=== PATIENT | female | born 1980 | race Asian ===

== ENCOUNTER → 2023-02-05 | Outpatient (CLI) | payer BC ==
--- NOTE | 2023-02-05 15:40 | MR ---
MRI brain and cervical spine. HISTORY: Numbness and tingling right arm and hand. COMPARISON: None. TECHNIQUE: Multiecho multiplanar images the brain and cervical spine were obtained without contrast. FINDINGS: MRI BRAIN: On the T1-weighted sagittal images midline structures including the cranial vertebral junction relati onships appear normal. The ventricles, basal cisterns and sulci over convexities within normal limits and there is no mass e ffect or shift of the midline structures. No abnormal signal intensity is seen throughout the brain parenchyma. Based on diffusion-weighted imaging, there is no diffusion restriction or acute ischemic event. The posterior fossa including the brainstem, fourth ventricle and cerebellar pontine angles are rosanne l. Intraorbital contents appear normal and symmetric. Visualized paranasal sinuses and mastoid air cells are well aerated. MRI cervical spine: The craniovertebral junction relationships and prevertebral soft tissues are normal. The disc spaces are well-maintained in height. There is minimal degenerative disc disease at the C5-6 level where there is a mild posterior disc bulge resulting in minimal mass effect on the ventral asp ect of thecal sac. The cervical cord is normal in size and signal intensity and there is no cervical stenosis. There is no cervical disc herniation. There is mild to moderate neural foraminal stenosis at the C5-6 level on the right and mild neural fo raminal stenosis at C5-6 on the left. IMPRESSION: 1. No significant abnormality seen within the brain. 2. Mild degenerative disc disease at C5-6 with mild to moderate right-sided neural foraminal stenosis .
== END | disposition home or self-care (01) ==
LOC: RADMRIMAIN 11:55
PROVIDERS: ATTEND Family Medicine
DX: G43.009 Migraine without aura, not intractable, without status migrainosus (principal); M99.71 Connective tissue and disc stenosis of intervertebral foramina of cervical region; M50.122 Cervical disc disorder at C5-C6 level with radiculopathy
CPT/HCPCS: 70551; 72141

== ENCOUNTER → 2023-02-25 | Outpatient (CLI) | payer BC ==
--- NOTE | 2023-02-28 13:52 | MM ---
Reason for Exam: Screening (asymptomatic). Baseline mammogram. Patient History: Menarche at age 8. First Full-Term at age 28. Late child-bearing (after 28). Last menstrual period: Risk Values: Medina 5 year model risk: 1.2%. NCI Lifetime model risk: 14.3%. Prior Study Comparison: Patient's first Mammogram. Tissue Density: The breast tissue is heterogeneously dense. This may lower the sensitivity of mammography. Findings: Analyzed By CAD. No significant mass, suspicious microcalcification, or other discrete abnormality is seen. Overall Assessment: Negative, BI-RAD 1 Management: Screening Mammogram of both breasts in 1 year. . Patient should continue monthly self-breast exams. A clinical breast exam by your physician is recommended on an annual basis. This exam should not preclude additional follow-up of suspicious palpable abnormalities. Note on Medina scores and lifetime risk: 1. A Medina score greater than 3% is considered moderate risk. If this is the case, consider specialist referral to assess eligibility for a risk reducing agent. 2. If overall lifetime risk for the development of breast cancer is 20% or higher, the patient may qualify for future screening with alternating mammogram and breast MRI. Electronically signed and approved by: Jaun Lane M.D. Radiologist
== END | disposition home or self-care (01) ==
LOC: RADMAMWWP 14:52
PROVIDERS: ATTEND Family Medicine
DX: Z12.31 Encounter for screening mammogram for malignant neoplasm of breast (principal)
CPT/HCPCS: 77063; 77067